=== PATIENT | female | born 1970 | race Caucasian/White ===

== ENCOUNTER → 2018-07-10 | Outpatient (CLI) | payer OTHER ==
[2018-06-25 11:34] VITALS: BP 112/67
[~2018-07-10] MED LIST: ATOR40TA59 PO; ESCI10TA2 PO; HYDR-2761 PO; IOHEXOL 300 MG/ML 50 ML VIAL. IJ ONE; LORC10TA PO; OMEP40CA5 PO; ROPI1TAB2 PO
--- NOTE | 2018-07-10 16:43 | RAD ---
EXAM: Cholangiogram via T-tube CLINICAL HISTORY: Choledocholithiasis COMPARISON: Intraoperative cholangiogram 06/22/2018 TECHNIQUE: The procedure was explained to the patient. Subsequently approximately 10 cc of contrast was intermittently injected and fluoroscopic images were obtained in multiple projections. FINDINGS/ IMPRESSION: A T-tube is seen within the biliary tree. Cholecystectomy clips are seen in the right upper quadrant. Following the administration of contrast, there is satisfactory positioning of the T-tube with extension of the tubing into the common bile duct and common hepatic duct. On the last image, cystic duct remnant is also partially visualized. Following opacification of the hepatobiliary tree, no definite filling defect is convincingly identified. No definite gallstones are seen. Electronically signed by: Jd Rizvi MD (07/10/2018 4:39 PM) [facility]
== END | disposition home or self-care (01) ==
LOC: RAD 09:04
PROVIDERS: ATTEND Surgery
DX: K80.50 Calculus of bile duct without cholangitis or cholecystitis without obstruction (principal)
CPT/HCPCS: 47531; Q9967